=== PATIENT | female | born 1995 | race Two or more races ===

== ENCOUNTER 2021-07-06 11:49 | Emergency (ER) | payer SELFPAY ==
[~2021-07-06] VITALS: Ht 157.5 cm; Wt 68.0 kg
[~2021-07-06 11:49] MED LIST: MIDOL
[2021-07-06 13:01] VITALS: BP 121/65
[2021-07-06] MEDS ORDERED: KETOROLAC TROMETH 60MG/2ML VIAL IM ONE (14:15)
== END 2021-07-06 14:55 | disposition home or self-care (01) ==
LOC: ER 11:49
DX: S16.1XXA Strain of muscle, fascia and tendon at neck level, initial encounter (principal); X50.0XXA Overexertion from strenuous movement or load, initial encounter; Y93.89 Activity, other specified; Y92.89 Other specified places as the place of occurrence of the external cause; Y99.8 Other external cause status
CPT/HCPCS: 96372; 99283; J1885

== ENCOUNTER 2023-05-29 19:02 | Emergency (ER) | payer MEDICAID, OTHER ==
[~2023-05-29] VITALS: Ht 154.9 cm; Wt 66.6 kg
[2023-05-29 19:15] VITALS: BP 115/73
== END 2023-05-29 22:04 | disposition home or self-care (01) ==
LOC: ER 19:08
DX: S61.211A Laceration without foreign body of left index finger without damage to nail, initial encounter (principal); W26.0XXA Contact with knife, initial encounter; Y93.89 Activity, other specified; Y92.89 Other specified places as the place of occurrence of the external cause; Y99.8 Other external cause status
CPT/HCPCS: 12001

== ENCOUNTER 2024-05-03 14:26 | Emergency (ER) | payer MEDICAID, OTHER ==
[~2024-05-03] VITALS: Ht 160 cm; Wt 68.1 kg
[2024-05-03 15:50] VITALS: BP 117/74; PULSE 103; RESP 18; TEMP 98.5; O2SAT 99
[2024-05-03] MEDS ORDERED: CYCL-837 PO (16:21)
[2024-05-03] MEDS ORDERED: NAPR-746 PO (16:21)
== END 2024-05-03 16:21 | disposition home or self-care (01) ==
LOC: EDBD 14:26 → EDUNIT# 14:26 → ER 14:26
DX: M54.6 Pain in thoracic spine (principal); V43.52XA Car driver injured in collision with other type car in traffic accident, initial encounter; Y93.89 Activity, other specified; Y92.488 Other paved roadways as the place of occurrence of the external cause; Y99.8 Other external cause status
CPT/HCPCS: 72070

== ENCOUNTER 2025-02-26 22:24 | Emergency (ER) | payer MEDICAID ==
[~2025-02-26] VITALS: Ht 157.5 cm; Wt 65.9 kg
[~2025-02-26 22:24] MED LIST changes: +CYCL-837 PO; +NAPR-746 PO
[2025-02-26 22:52] VITALS: BP 98/54; PULSE 104; RESP 16; TEMP 99.5; O2SAT 100
[2025-02-26] MEDS: HYDROcodone-ACET 5/325MG TAB PO ONE (23:03)
[2025-02-26] MEDS: KETOROLAC TROMETH 60MG/2ML VIAL IM ONE (23:03)
--- NOTE | 2025-02-26 23:43 | DVH ---
CLINICAL INDICATION: FELL ON DRIVEWAY TECHNIQUE: XY L KNEE 3V XRAY Comparison: None FINDINGS/IMPRESSION: : There is no evidence of acute fracture or dislocation. Soft tissues are unremarkable.
--- NOTE | 2025-02-26 23:44 | DVH ---
CLINICAL INDICATION: FELL ON DRIVEWAY TECHNIQUE: XY R KNEE 3V XRAY Comparison: None FINDINGS/IMPRESSION: : There is no evidence of acute fracture or dislocation. Soft tissues are unremarkable.
[2025-02-26] MEDS ORDERED: METH4PAK PO (23:54)
--- NOTE | 2025-02-26 23:55 | ED.PDOC ---
Back pain HPI HPI Comments PRESENTS TO ED FOR BILATERAL KNEE PAIN AND SWELLING. REPORTS INJURY TO THE KNEES 2 YEARS AGO. STATES THAT SHE HAS BEEN ON HER FEET WORKING AND PAIN JUST GOT WORSE TODAY. UNABLE TO BEAR WEIGHT. DENIES NUMBNESS OR WEAKNESS Chief Complaint: Lower Extremity Time Seen by MD: 22:30 Primary Care Provider: CAREY Reviewed Notes: Nurses Notes, Medications, Allergies Allergies: Coded Allergies: NO KNOWN ALLERGIES (Unverified , 10/05/10) Home Meds Active Scripts Methylprednisolone (Medrol Dosepak) 4 Mg Du, 4 MG PO UD for 6 Days, #21 TAB UAD Prov:AMBER PARK SECURITY SERVICES SPECIALIST 02/26/25 Naproxen (Naproxen) 500 Mg Tab, 500 MG PO BIDPC for 14 Days, #28 TAB 0 Refills Prov:ANDREW YOON NP 05/03/24 Cyclobenzaprine Hcl (Cyclobenzaprine Hcl) 5 Mg Tab, 5 MG PO QHSP PRN for 10 Days, #10 TAB 0 Refills Prov:ANDREW YOON NP 05/03/24 Reported Medications [Midol] No Conflict Check 10/05/10 Mode of Arrival: Wheelchair Past Medical History PAST MEDICAL HISTORY: Anemia Surgical History: Denies all surgeries TRIMMER HELPER History: Denies all TRIMMER HELPER Hx Family History Family History: Reviewed,noncontributory to illness Social History Smoker: Non-Smoker Alcohol: Occasionally Drugs: Denies Drug Use Lives In: Home Constitutional: denies: chills, diaphoresis, fatigue, fever, malaise, sweats, weakness, others EENTM: denies: blurred vision, double vision, ear bleeding, ear discharge, ear drainage, ear pain, ear ringing, eye pain, eye redness, hearing loss, mouth pain, mouth swelling, nasal discharge, nose bleeding, nose congestion, nose p ain, photophobia, tearing, throat pain, throat swelling, voice changes, others Respiratory: denies: cough, hemoptysis, orthopnea, SOB at rest, shortness of breath, SOB with excertion, stridor, wheezing, others Cardiovascular: denies: chest pain, dizzy spells, diaphoresis, Dyspnea on exertion, edema, irregular heart beat, left arm pain, lightheadedness, palpitations, PND, syncope, others Gastrointestinal: denies: abdomen distended, abdominal pain, blood streaked bowels, constipated, diarrhea, dysphagia, difficulty swallowing, hematemesis, melena, nausea, poor appetite, poor fluid intake, rectal bleeding, rectal pain, vomiting, others Genitourinary: denies: abnormal vagina bleeding, burning, dyspareunia, dysuria, flank pain, frequency, hematuria, incontinence, pain, , vagina discharge, urgency, others Neurological: denies: dizziness, fainting, headache, left sided numbness, left sided weakness, numbness, paresthesia, pre-existing deficit, right sided numbness, right sided weakness, seizure, speech problems, tingling, tremors, weakness, others Musculoskeletal: reports: others (BILATERAL KNEE PAIN AND SWELLING); denies: back pain, gout, joint pain, joint swelling, muscle pain, muscle stiffness, neck pain Integumetry: denies: bruises, change in color, change in hair/nails, dryness, laceration, lesions, lumps, rash, wounds, others Allergic/Immunocompromised: denies: Difficulty Healing, Frequent Infections, Hives, Itching, others Hematologic/Lymphatic: denies: anemia, blood clots, easy bleeding, easy bruising, swollen glands, others Endocrine: denies: excessive hunger, excessive sweating, excessive thirst, excessive urination, flushing, intolerance to cold, intolerance to heat, unexplained weight gain, unexplained weight loss, others Psychiatric: denies: anxiety, bipolar disorder, depression, hopeless, panic disorder, schizophrenia, sleepless, suicidal, others Physical Exam General Appearance: No Apparent Distress, Normal HEENT: Pharynx Normal Neck: Full Range of Motion, Non-Tender Respiratory: Lungs Clear, No Respiratory Distress, Normal Breath Sounds Cardiovascular: No Edema, No JVD, No Murmur, No Gallop, Normal Peripheral Pulses, Regular Rate/Rhythm Breast Exam: Deferred Gastrointestinal: No Organomegaly, Non Tender, No Pulsatile Mass, Normal Bowel Sounds, Soft Genitalia: Deferred Pelvic: Deferred Rectal: Deferred Extremities: No calf tenderness, Normal capillary refill, Normal inspection, Normal range of motion, Non-tender, No pedal edema Musculoskeletal : Location: Left (MODERATE EDEMA ABOUT THE KNEE. NEGATIVE [place] AND NEGATIVE BALLOTTEMENT AND NEGATIVE DRAWER EXAM ON BILATERAL KNEES. NOTED ERYTHE MA OR WARMTH TO TOUCH ON BILATERAL KNEES) Apperance: Normal Neurologic: Alert, web communications specialist II-XII nml as Tested, No Motor Deficits, Normal Affect, Normal Mood, No Sensory Deficits Cerebellar Function: Normal Reflexes: Normal Skin: Dry, Normal Color, Warm Lymphatic: No Adenopathy Was a procedure done? Was a procedure done?: No Back Pain Differential Dx Differential Diagnosis: Fracture, Musculoskeletal Pain, Strain X-Ray, Labs, Meds, VS Vital Signs Date Time Temp Pulse Resp B/P (MAP) Pulse Ox O2 Delivery O2 Flow Rate FiO2 02/26/25 22:52 104 16 100 Room Air 02/26/25 22:52 99.5 104 16 98/54 (69) 100 99.5 02/26/25 22:30 99.5 104 16 98/54 (69) 100 99.5 X-Ray, Labs, Meds, VS Comment BILATERAL KNEE X-RAY SHOW NO ACUTE FRACTURES, OSSEOUS LESIONS, OR DISLOCATIONS. GIVE SOLU-MEDROL 25 MG IM AND TORADOL 60 MG IM AND 10 MG OF NORCO. PATIENT WAS ALSO PLACED IN LEFT KNEE BRACE AND CRUTCHES. ADVISED TO FOLLOW UP WITH HER ELECTRICAL DEVELOPMENT ENGINEER SCHEDULED. ER RETURN PRECAUTIONS GIVEN PATIENT INDICATES UNDERSTANDING AGREES WITH DISCHARGE PLAN OF CARE. Time of 1ST Reevaluation: 23:50 Reevaluation 1ST: Improved Patient Education/Counseling: Diagnosis, Treatment, Prognosis, Need For Follow Up Family Education/Counseling: Diagnosis, Treatment, Prognosis, Need For Follow Up Departure 1 Departure Time of Disposition: 23:53 Impression: Primary Impression: Bilateral knee swelling Disposition: HOME / SELF CARE / HOMELESS Condition: Stable e-Prescriptions Methylprednisolone (Medrol Dosepak) 4 Mg Du 4 MG PO UD for 6 Days, #21 TAB UAD Prov: AMBER APRK 02/26/25 Discharged With: Spouse Critical Care Note Critical Care Time?: No Stability Stability form required: AMBER Piña Feb 26, 2025 23:55
[2025-02-26] MEDS: methylPREDNISolone SOD SUCC 125 MG/2 ML VL IM ONE (23:57)
== END 2025-02-27 00:08 | disposition home or self-care (01) ==
LOC: ER 22:24
DX: M79.89 Other specified soft tissue disorders (principal); M25.561 Pain in right knee; M25.562 Pain in left knee; Z79.899 Other long term (current) drug therapy
CPT/HCPCS: 73562; 96372; 99284; J1885; J2919; 29505

== ENCOUNTER 2025-03-10 00:11 | Emergency (ER) | payer MEDICAID ==
[~2025-03-10] VITALS: Ht 157.5 cm; Wt 68.1 kg
[2025-03-10 02:24] VITALS: BP 112/43; PULSE 96; RESP 20; TEMP 98.7; O2SAT 100
[2025-03-10] MEDS ORDERED: ACET500T58 PO (02:29)
[2025-03-10] MEDS ORDERED: METH4PAK PO (02:29)
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
[2025-03-10] MEDS: methylPREDNISolone SOD SUCC 125 MG/2 ML VL IM ONE (02:37)
== END 2025-03-10 02:39 | disposition home or self-care (01) ==
LOC: ER 00:11
DX: G89.29 Other chronic pain (principal); M25.561 Pain in right knee; M25.562 Pain in left knee; Z79.899 Other long term (current) drug therapy
CPT/HCPCS: 96372; 99283; J2919